=== PATIENT | female | born 1970 | race African-American/Black ===

== ENCOUNTER 2018-09-27 03:23 | Emergency (ER) | payer MEDICAID, OTHER ==
[~2018-09-27] VITALS: Ht 167.6 cm; Wt 65.8 kg
[2018-09-27 03:25] VITALS: BP 140/86
[2018-09-27] MEDS ORDERED: ACETAMINOPHEN ES 500 MG TABLET ONE (03:43)
[2018-09-27] MEDS ORDERED: ACETAMINOPHEN ES 500 MG TABLET PO ONE (04:00)
[2018-09-27] MEDS ORDERED: MULT-24 PO (14:48)
[2018-09-27] MEDS ORDERED: LEVO25TA9 PO (14:48)
[2018-09-27] MEDS ORDERED: ASPI-1169 PO (14:48)
== END 2018-09-27 03:56 | disposition home or self-care (01) ==
LOC: EDBD → ER 03:28
DX: M25.512 Pain in left shoulder (principal); Z88.8 Allergy status to other drugs, medicaments and biological substances; Z59.0 Homelessness
CPT/HCPCS: 99283; A4606; Z7610

== ENCOUNTER 2018-09-27 12:06 | Emergency (ER) | payer MEDICAID, OTHER ==
[~2018-09-27] VITALS: Ht 162.6 cm; Wt 61.2 kg
--- NOTE | 2018-09-27 12:21 | NUR ---
BIBRA C/O ON/OFF LEFT SIDED CP PAIN X 5 DAYS, NON RADIATING. PAIN LEVEL 7/10, WORSENS WITH MOVEMENT. PT IS AOX4, AMB, HAS FEVER, TACHYCARDIC, RR EVEN AND UNLABOREED. SKIN WARM DRY INTACT. APPEARS SLIGHTLY ANXIOUS. READY FOR EVAL.
[2018-09-27] MEDS ORDERED: ACETAMINOPHEN ES 500 MG TABLET ONE (13:06)
[2018-09-27] MEDS ORDERED: HYDROMORPHONE INJ 2 MG/ML DISP.SYRIN ONE (13:26)
[2018-09-27] MEDS ORDERED: ONDANSETRON HCL/PF 4 MG/2 ML VIAL ONE (13:26)
[2018-09-27] MEDS ORDERED: IV NS 0.9% 1,000 ML BAG IV ONE ×2 (13:30→14:30)
[2018-09-27] MEDS ORDERED: MORPHINE SULFATE INJ 2 MG/ML DISP.SYRIN IV ONE (13:30)
[2018-09-27] MEDS ORDERED: ACETAMINOPHEN ES 500 MG TABLET PO ONE (13:30)
[2018-09-27] MEDS ORDERED: ONDANSETRON HCL/PF 4 MG/2 ML VIAL IVP ONE (13:30)
[2018-09-27] MEDS ORDERED: HYDROMORPHONE INJ 0.5 MG/0.5 ML SYRINGE IV ONE (13:30)
--- NOTE | 2018-09-27 13:30 | NUR ---
1.5MG DILAUDID WASTED WITH RN PRESENT
[2018-09-27 13:52] LABS: CALCIUM, SERUM 9.1 mg/dL (8.5-10.1); CARBON DIOXIDE 23 mmol/L (21-32); CHLORIDE 92 mmol/L (98-107); CREATININE 0.8 mg/dL (0.6-1.3); GLUCOSE 118 mg/dL (74-106); POTASSIUM 3.2 mmol/L (3.5-5.1); SODIUM SERUM 124 mmol/L (136-145); UREA NITROGEN, BLOOD 10 mg/dL (7-18)
[2018-09-27 13:54] LABS: ALANINE AMINOTRANSFERASE 33 U/L (12-78); ALKALINE PHOSPHATASE 96 U/L (46-116); ASPARTATE AMINOTRANSFERASE 28 U/L (15-37); BILIRUBIN,DIRECT 0.2 mg/dL (0.0-0.2); BILIRUBIN,TOTAL 0.7 mg/dL (0.2-1.0); LIPASE 65 U/L (73-393); TOTAL PROTEIN, SERUM 8.2 g/dL (6.4-8.2)
[2018-09-27 14:01] LABS: BASOPHILS % (AUTO) 0.1 % (0.0-2.0); HEMATOCRIT 38 % (33-45); LYMPHOCYTES # (AUTO) 0.7 /CMM (0.8-4.8); LYMPHOCYTES % (AUTO) 3.4 % (20.0-44.0); MEAN CORPUSCULAR HGB CONC 34 g/dl (31.0-36.0); MEAN CORPUSCULAR VOLUME 100 fL (82-100); NEUTROPHILS # (AUTO) 18.3 /CMM (1.8-8.9); NEUTROPHILS % (AUTO) 91.5 % (43.0-81.0); PLATELET COUNT (AUTO) 210 /CMM (150-450); RED BLOOD CELL COUNT(AUTO) 3.84 MIL/uL (4.0-5.2)
[2018-09-27] MEDS ORDERED: PIPERACILLIN /TAZOBACTAM 3.375 G VIAL IV ONE (14:20)
[2018-09-27] MEDS ORDERED: POTASSIUM CHLORIDE 20 MEQ TAB.PRT.SR PO ONE ×2 (14:20→14:30)
--- NOTE | 2018-09-27 14:27 | NUR ---
PROVIDED PT WITH JUICE AND CRACKERS, OK PER WELFARE WORKER
[2018-09-27] MEDS ORDERED: PIPERACILLIN /TAZOBACTAM 3.375 G in IV D5W 50 ML IV ONE (14:30)
[2018-09-27] MEDS ORDERED: MULT-24 PO (14:48)
[2018-09-27] MEDS ORDERED: ASPI-1169 PO (14:48)
[2018-09-27] MEDS ORDERED: LEVO25TA9 PO (14:48)
--- NOTE | 2018-09-27 14:51 | NUR ---
ASSISTED PT TO BATHROOM
[2018-09-27 15:01] LABS: APPEARANCE,URINE Turbid (CLEAR); BILIRUBIN,URINE MODERATE (NEGATIVE); BLOOD, URINE Trace-intact Ery/uL (NEGATIVE); COLOR,URINE Amber (YELLOW); KETONES,URINE 80 (NEGATIVE); LEUKOCYTE ESTERASE ,URINE Negative (NEGATIVE); NITRITE, URINE Negative (NEGATIVE); PROTEIN,URINE 100 mg/dl (NEGATIVE); UGLUCOSE Negative (NEGATIVE)
[2018-09-27 15:16] LABS: BACTERIA,URINE Few /HPF (None Seen); RBC,URINE 0-2 /HPF (0-2); SQUAMOUS EPITHELIAL CELL,UR Moderate /HPF (None Seen); WBC,URINE 0-2 /HPF (0-3)
--- NOTE | 2018-09-27 15:29 | NUR ---
FLU SWAB SENT TO STAT LAB
--- NOTE | 2018-09-27 16:14 | NUR ---
PT ASLEEP IN BED, FLUIDS COMPLETE, VSS. WILL CONT TO MONITOR.
[2018-09-27] MEDS ORDERED: HYDROCODONE/APAP 5/325MG 1 EACH TABLET ONE (16:23)
[2018-09-27] MEDS ORDERED: HYDROCODONE/APAP 5/325MG 1 EACH TABLET PO ONE (16:30)
--- NOTE | 2018-09-27 17:30 | NUR ---
Pt accepted to [facility] Accepting is Dr. Guerin Room 6213 # for report is [phone] [facility] for transport 6:45 transport auth # [id number] trip number [id number]
[2018-09-27 18:45] VITALS: BP 103/74
--- NOTE | 2018-09-27 19:20 | NUR ---
REPORT GIVEN TO SHARAN ROLDAN
--- NOTE | 2018-09-27 20:01 | NUR ---
REPORT GIVEN TO ELIA RACHEL AT [facility] FOR ROOM [id number].
--- NOTE | 2018-09-28 13:30 | NUR ---
Denys sosa in [facility] - 09/28/18 at 2342 by LISANDRO 1.5MG DILAUDID WASTED WITH ELIA CRUZ
== END 2018-09-27 20:55 ==
LOC: ER 12:21
DX: E87.1 Hypo-osmolality and hyponatremia (principal); R07.89 Other chest pain; R91.8 Other nonspecific abnormal finding of lung field; E87.6 Hypokalemia; Z88.8 Allergy status to other drugs, medicaments and biological substances; Z79.82 Long term (current) use of aspirin; Z79.899 Other long term (current) drug therapy
CPT/HCPCS: 36415; 71045; 80048; 80076; 81001; 83605; 83690; 84484; 84703; 85025; 87040 ×2; 87081; 87086; 87804; 93005; 96361; 96365; 96375; 99285; A4606; J1170; J2405; J2543 ×2; J7030 ×2; J7060; Z7610; 81000-TC; 87400